=== PATIENT | female | born 1950 | race Asian ===

== ENCOUNTER 2018-04-27 12:21 | Emergency (ER) | payer MEDICARE ==
[~2018-04-27] VITALS: Ht 152.4 cm; Wt 81.8 kg
[2018-04-27] MEDS ORDERED: [UNRECOGNIZED DRUG - REMARK] PO (12:37)
[2018-04-27] MEDS ORDERED: ATEN100T PO (12:37)
[2018-04-27] MEDS ORDERED: ALBUTEROL SULFATE HFA 90 MCG/PUFF 8 GM INHALER IH ONE (14:00)
[2018-04-27 14:52] VITALS: BP 142/81
== END 2018-04-27 14:52 | disposition home or self-care (01) ==
LOC: EMS 12:23
DX: R05 Cough (principal); R06.2 Wheezing; E78.00 Pure hypercholesterolemia, unspecified; I10 Essential (primary) hypertension; Z88.6 Allergy status to analgesic agent
CPT/HCPCS: 94640; J3535